=== PATIENT | female | born 1965 | race Caucasian/White ===

== ENCOUNTER 2017-01-18 20:14 | Emergency (ER) | payer OTHER ==
[~2017-01-18] VITALS: Ht 162.6 cm; Wt 78.1 kg
[~2017-01-18 20:14] MED LIST: ONDA4TAB8 PO
[2017-01-18 21:34] VITALS: Ht 162.6 cm; Wt 78.1 kg
[2017-01-19] MEDS ORDERED: ONDANSETRON 4 MG INJ IV STA (00:59)
[2017-01-19] MEDS ORDERED: morphine 4 MG/ML VIAL IV STA (00:59)
[2017-01-19] MEDS ORDERED: SOD CHLORIDE 0.9% 500 ML IV STA (00:59)
--- NOTE | 2017-01-19 01:43 | RADRPT ---
PROCEDURE: XR Chest. CLINICAL INDICATION: Abdominal pain. TECHNIQUE: Single frontal chest x-ray. COMPARISON: None. FINDINGS: The cardiomediastinal silhouette is unremarkable. The lungs are clear. No focal infiltrate is seen. There is no pleural effusion. There is no pneumothorax. The osseous structures are unremarkable. IMPRESSION: 1. No active disease. RPTAT: HMVK .Johnny Wylie MD, MD Date Time Electronically viewed and signed by .Johnny Wylie MD, on 01/19/2017 01:43 .K/
[2017-01-19 01:58] LABS: ADD SCAN DIFF NO
[2017-01-19 02:00] LABS: ADD UMIC YES; URINE BILIRUBIN (Dip) NEGATIVE (NEGATIVE); URINE BLOOD (Dip) 1+ (NEGATIVE); URINE COLOR LT. YELLOW (YELLOW); URINE GLUCOSE (Dip) NEGATIVE (NEGATIVE); URINE KETONES (Dip) NEGATIVE (NEGATIVE); URINE LEUKOCYTE ESTERASE (Dip) NEGATIVE (NEGATIVE); URINE NITRITE (Dip) NEGATIVE (NEGATIVE); URINE TOTAL PROTEIN (Dip) NEGATIVE (NEGATIVE); URINE UROBILINOGEN (Dip) 0.2 E.U./dL (0.1-1.0)
[2017-01-19 02:17] LABS: ALBUMIN 4.1 g/dl (3.3-4.9); CHLORIDE 102 mmol/L (97-110)
[2017-01-19 02:18] LABS: POTASSIUM 4.3 mmol/L (3.5-5.1); SODIUM 144 mmol/L (135-144)
[2017-01-19 02:19] LABS: BASOPHILS % 0.3 % (0.0-2.0); EOSINOPHILS # 0.1 10^3/ul (0.0-0.5); EOSINOPHILS % 0.9 % (0.0-7.0); HEMATOCRIT 39.8 % (37.0-47.0); HEMOGLOBIN 13.2 g/dl (12.0-16.0); LYMPHOCYTES # 3.4 10^3/ul (0.8-2.9); LYMPHOCYTES % 29.1 % (15.0-51.0); MEAN CORPUSCULAR HEMOGLOBIN 29.6 pg (29.0-33.0); MEAN CORPUSCULAR HGB CONC 33.2 g/dl (32.0-37.0); MEAN CORPUSCULAR VOLUME 89.2 fl (82.0-101.0); MEAN PLATELET VOLUME 9.7 fl (7.4-10.4); MONOCYTE # 0.8 10^3/ul (0.3-0.9); MONOCYTES % 7.1 % (0.0-11.0); NEUTROPHIL # 7.3 10^3/ul (1.6-7.5); NEUTROPHILS % 62.3 % (39.0-77.0); PLATELET COUNT 348 10^3/UL (140-415); RED BLOOD COUNT 4.46 10^6/ul (4.20-5.40); RED CELL DISTRIBUTION WIDTH 12.3 % (11.5-14.5); WHITE BLOOD COUNT 11.8 10^3/ul (4.8-10.8)
[2017-01-19 02:20] LABS: ALANINE AMINOTRANSFERASE 24 IU/L (13-69); ALKALINE PHOSPHATASE 129 IU/L (42-121); ANION GAP 17 (8-16); ASPARTATE AMINO TRANSFERASE 19 IU/L (15-46); BILIRUBIN,INDIRECT 0.5 mg/dl (0-1.1); BILIRUBIN,TOTAL 0.5 mg/dl (0.2-1.3); BLOOD UREA NITROGEN 13 mg/dl (7-20); CARBON DIOXIDE 29 mmol/L (21-31); CREATININE 0.66 mg/dl (0.44-1.00); TOTAL PROTEIN 7.8 g/dl (6.1-8.1)
[2017-01-19 02:21] LABS: CALCIUM 9.3 mg/dl (8.4-10.2); GLUCOSE 102 mg/dl (70-220); SQUAMOUS EPITHELIAL CELL,UR RARE; URINE RBCS 0-2 /HPF (0)
[2017-01-19 02:39] LABS: TROPONIN-I < 0.012 ng/ml (0.00-0.12)
--- NOTE | 2017-01-19 02:59 | RADRPT ---
PROCEDURE: CT abdomen and pelvis without intravenous contrast. CLINICAL INDICATION: Pain. TECHNIQUE: CT of the abdomen/pelvis was performed utilizing axial images with reconstructions in s agittal and coronal planes. The administered radiation dose is CTDI 15 mGy, DLP 852 mGy-cm. COMPARISON: 09/25/2016 FINDINGS: Visualized Chest: The visualized lung bases are clear. Abdomen: The liver, spleen, pancreas, and adrenal glands are unremarkable. Prior cholecystectomy is noted. The kidneys are without hydronephrosis. No definite urinary calculi are seen. There is no evidence of bowel obstruction. The appendix is normal. No intra-abdominal free air is seen. Numerous diverticula are noted throughout the colon. Some minimal inflammatory changes surro und the midsigmoid colon, slightly more proximal in location than diverticulitis on the previous exa m. No regional fluid collections are seen. There is no evidence of intra-abdominal adenopathy or free fluid. There is a small, omentum contain ing incisional hernia within the midline ventral abdomen. Pelvis: There is no evidence of pelvic adenopathy. The uterus and ovaries are without enlargement. The uri nary bladder is unremarkable. There is no pelvic free fluid. Osseous structures: Unremarkable. IMPRESSION: Extensive colonic diverticulosis with mild diverticulitis of the mid sigmoid colon. RPTAT: HIKT .Madhav Cardoza MD, Date Time Electronically viewed and signed by .Madhav Cardoza MD, MD on 01/19/2017 02:59 .T/
--- NOTE | 2017-01-19 03:28 | ERD ---
ER Documentation Chief Complaint Date/Time DATE: 01/19/17 TIME: 03:27 Chief Complaint AP SINCE WEDNESDAY OFF AND ON DENIES N/V HPI This is a 20 female with abdominal pain since off and on. Pain is mild to moderate intensity located in lower quadrant. No fevers no chills. No other current complaints. ROS All systems reviewed and are negative except as per history of present illness. Medications Home Meds Active Scripts Ondansetron Hcl* (Zofran*) 4 Mg Tablet, 4 MG PO Q6H Y for NAUSEA AND OR VOMITING for 14 Days, #20 TAB Prov:JF HUTTON. 09/26/16 Allergies Allergies: Coded Allergies: No Known Allergy (Unverified , 09/25/16) PMhx/Soc History of Surgery: Yes (gall bladder removal, right shoulder replacement) Anesthesia Reaction: No Hx Neurological Disorder: No Hx Respiratory Disorders: No Hx Cardiac Disorders: Yes (HTN) Hx Psychiatric Problems: No Hx Miscellaneous Medical Probl: Yes (DIVERTICULITIS) Hx Alcohol Use: No Hx Substance Use: No Hx Tobacco Use: No Smoking Status: Never smoker Physical Exam Vitals Vital Signs Date Time Temp Pulse Resp B/P Pulse Ox O2 Delivery O2 Flow Rate FiO2 01/19/17 01:04 99.5 62 20 134/76 98 Room Air 01/18/17 21:34 99.7 83 20 172/54 98 Physical Exam Const: [] Head: Atraumatic Eyes: Normal Conjunctiva ENT: Normal External Ears, Nose and Mouth. Neck: Full range of motion..~ No meningismus. Resp: Clear to auscultation bilaterally Cardio: Regular rate and rhythm, no murmurs Abd: Soft, non tender, non distended. Normal bowel sounds Skin: No petechiae or rashes Back: No midline or flank tenderness Ext: No cyanosis, or edema Neur: Awake and alert Psych: Normal Mood and Affect Result Diagram: 01/19/1710901/19/17109 Results 24 hrs Laboratory Tests Test 01/19/17 01:10 Alanine Aminotransferase (ALT/SGPT) 24IU/L Albumin 4.1g/dl Albumin/Globulin Ratio 1.10 Alkaline Phosphatase 129IU/L Anion Gap 17 Aspartate Amino Transf (AST/SGOT) 19IU/L Basophils # 0.010^3/ul Basophils % 0.3% Blood Urea Nitrogen 13mg/dl Calcium Level 9.3mg/dl Carbon Dioxide Level 29mmol/L Chloride Level 102mmol/L Creatinine 0.66mg/dl Direct Bilirubin 0.00mg/dl Eosinophils # 0.110^3/ul Eosinophils % 0.9% Globulin 3.70g/dl Glucose Level 102mg/dl Hematocrit 39.8% Hemoglobin 13.2g/dl Indirect Bilirubin 0.5mg/dl Lipase 156U/L Lymphocytes # 3.410^3/ul Lymphocytes % 29.1% Mean Corpuscular Hemoglobin 29.6pg Mean Corpuscular Hemoglobin Concent 33.2g/dl Mean Corpuscular Volume 89.2fl Mean Platelet Volume 9.7fl Monocytes # 0.810^3/ul Monocytes % 7.1% Neutrophils # 7.310^3/ul Neutrophils % 62.3% Nucleated Red Blood Cells # 0.010^3/ul Nucleated Red Blood Cells % 0.0/100WBC Platelet Count 05869^3/UL Potassium Level 4.3mmol/L Red Blood Count 4.4610^6/ul Red Cell Distribution Width 12.3% Sodium Level 144mmol/L Total Bilirubin 0.5mg/dl Total Protein 7.8g/dl Troponin I < 0.012ng/ml Urine Bilirubin NEGATIVE Urine Clarity CLEAR Urine Color LT. YELLOW Urine Glucose NEGATIVE% Urine Hemoglobin 1+ Urine Ketones NEGATIVE Urine Leukocyte Esterase NEGATIVE Urine Microscopic RBC 0-2/HPF Urine Microscopic WBC NONE SEEN/HPF Urine Nitrite NEGATIVE Urine Specific [place] <=1.005 Urine Squamous Epithelial Cells RARE Urine Total Protein NEGATIVE Urine Urobilinogen 0.2 E.U./dL Urine pH 6.0 White Blood Count 11.810^3/ul Current Medications Medications (Trade) Dose Ordered Sig/Julián Route PRN Reason Start Time Stop Time Status Last Admin Dose Admin Sodium Chloride (NS) 500 ml @ 500 mls/hr Q1H STAT IV 01/19/17 00:59 01/19/17 01:58 DC 01/19/17 01:10 Morphine Sulfate (morphine) 4 mg ONCE STAT IV 01/19/17 00:59 01/19/17 01:00 DC 01/19/17 01:10 Ondansetron HCl (Zofran Inj) 4 mg ONCE STAT IV 01/19/17 00:59 01/19/17 01:00 DC 01/19/17 01:10 Procedures/MDM Medical decision making: Patient anything with evidence of mild diverticulitis on CT scan. Patient be discharged on Cipro Flagyl, tramadol. Follow-up in 8 hours for serial abdominal exams Departure Diagnosis: Primary Impression: Abdominal pain Abdominal location: generalized Qualified Code: R10.84 - Generalized abdominal pain Additional Impression: Diverticulitis Diverticulitis site: unspecified part of intestinal tract Diverticulitis bleeding: without bleeding Diverticulitis complication: without perforation or abscess Qualified Code: K57.92 - Diverticulitis of intestine without perforation or abscess without bleeding, unspecified part of intestinal tract Condition: Stable DALE YIP Jan 19, 2017 03:28
[2017-01-19] MEDS ORDERED: CIPR500T4 PO (03:29)
[2017-01-19] MEDS ORDERED: METR500T PO (03:29)
[2017-01-19] MEDS ORDERED: TRAM50TA2 PO (03:29)
[2017-01-19 04:10] VITALS: BP 111/70; PULSE 70; RESP 18; TEMP 98.9
== END 2017-01-19 04:45 | disposition home or self-care (01) ==
LOC: E/R 20:14
DX: R10.84 Generalized abdominal pain (principal); K57.92 Diverticulitis of intestine, part unspecified, without perforation or abscess without bleeding; I10 Essential (primary) hypertension; Z96.611 Presence of right artificial shoulder joint
CPT/HCPCS: 36415; 71010; 74176; 80053; 81001; 83690; 84484; 85025; 93005; 96374; 96375; J2270; J2405; J7040; Z7502; 81003